=== PATIENT | male | born 1960 | race Caucasian/White ===

== ENCOUNTER 2019-08-05 06:55 | Emergency (ER) | payer MEDICARE ==
[~2019-08-05] VITALS: Ht 180.3 cm; Wt 127.5 kg
--- NOTE | 2019-08-05 07:09 | NUR ---
[facility]IBRA. TO ER BED 9. AAOX4. BREATHING EVEN AND UNLABORED. C/O CHEST PAIN 2 HOURS [employer]. PT REPORT PAIN PRESSURE ON MID CHEST, 8/10, RADIATES TO NECK. PT REPORTS TAKING ASPIRIN AND [place] [employer]. PT ALSO REPORT HAVING HEADACHE. NOTED ANXIOUS. MD AT BEDSIDE. ORDERS RECEIVED, NOTED AND CARRIED OUT. IV LINE OBTAINED ON L AC 18G. BLOOD DRAWN AND GIVEN TO [employer]. EKG DONE. PT PLACED ON MONITOR.
[2019-08-05 07:17] LABS: BASOPHILS # (AUTO) 0.1 /CMM (0.0-0.2); HEMATOCRIT 37 % (39-51); HEMOGLOBIN 12.6 g/dL (13.5-17.5); LYMPHOCYTES # (AUTO) 1.7 /CMM (0.8-4.8); LYMPHOCYTES % (AUTO) 30.2 % (20.0-44.0); MEAN CORPUSCULAR HGB CONC 34 g/dl (31.0-36.0); MEAN CORPUSCULAR VOLUME 90 fL (80-96); MONOCYTES # (AUTO) 0.6 /CMM (0.1-1.30); MONOCYTES % (AUTO) 10.6 % (2.0-12.0); NEUTROPHILS # (AUTO) 3.1 /CMM (1.8-8.9); NEUTROPHILS % (AUTO) 56.2 % (43.0-81.0); PLATELET COUNT (AUTO) 227 /CMM (150-450); RED BLOOD CELL COUNT(AUTO) 4.07 MIL/uL (4.5-6.0); WHITE BLOOD COUNT (AUTO) 5.5 K/uL (4.3-11.0)
[2019-08-05] MEDS ORDERED: METOPROLOL TARTRATE INJ 5 MG/5 ML AMPUL ONE (07:24)
[2019-08-05] MEDS ORDERED: LORAZEPAM INJ 2 MG/ML VIAL ONE (07:24)
[2019-08-05] MEDS ORDERED: IV NS 0.9% 500 ML BAG IV ONE (07:30)
[2019-08-05] MEDS ORDERED: LORAZEPAM INJ 2 MG/ML VIAL IV ONE (07:30)
[2019-08-05] MEDS ORDERED: METOPROLOL TARTRATE INJ 5 MG/5 ML AMPUL IV ONE (07:30)
--- NOTE | 2019-08-05 07:30 | NUR ---
RECEIVED REPORT FROM NADIA MAY, PT IS AAOX4, NOT IN RESPIRATORY DISTRESS, V/S STABLE, KEPT RESTED AND COMFORTABLE, AWAITING LAB RESULTS.
--- NOTE | 2019-08-05 07:32 | NUR ---
ORCHID WORKER AT BEDSIDE FOR XRAY.
--- NOTE | 2019-08-05 07:44 | NUR ---
PT ENDORSED TO DORON RN
[2019-08-05 07:50] LABS: CALCIUM, SERUM 8.8 mg/dL (8.5-10.1); CARBON DIOXIDE 27 mmol/L (21-32); CHLORIDE 97 mmol/L (98-107); GLUCOSE 90 mg/dL (74-106); POTASSIUM 3.6 mmol/L (3.5-5.1); SODIUM SERUM 137 mmol/L (136-145); UREA NITROGEN, BLOOD 13 mg/dL (7-18)
[2019-08-05 08:02] LABS: ALANINE AMINOTRANSFERASE 44 U/L (12-78); ALBUMIN 3.6 g/dL (3.4-5.0); ALKALINE PHOSPHATASE 71 U/L (46-116); ASPARTATE AMINOTRANSFERASE 37 U/L (15-37); B-TYPE NATRIURETIC PEPTIDE 64 PG/ML (0-125); BILIRUBIN,DIRECT 0.1 mg/dL (0.0-0.2); BILIRUBIN,TOTAL 0.3 mg/dL (0.2-1.0); TOTAL PROTEIN, SERUM 7.4 g/dL (6.4-8.2)
[2019-08-05] MEDS ORDERED: ASPI-992 PO (08:46)
[2019-08-05] MEDS ORDERED: LOSA1TAB39 PO (08:46)
[2019-08-05] MEDS ORDERED: BUPR300T54 PO (08:46)
[2019-08-05] MEDS ORDERED: ROSU40TA23 PO (08:46)
--- NOTE | 2019-08-05 08:46 | NUR ---
CALLED HOUSE SUP FOR TELE-BED. WILL CALL BACK.
--- NOTE | 2019-08-05 10:42 | NUR ---
GOT BED 314-1
--- NOTE | 2019-08-05 11:09 | NUR ---
REPORT GIVEN TO NADIA ALMONTE FOR NESS.
--- NOTE | 2019-08-05 11:30 | NUR ---
Patient does not wish to proceed with medical care recommended by Dr. MENDEZ. Patient given information related to possible complications, up to and including , which could occur as a result of leaving the hospital at this time. Patient verbalizes understanding of risks involved due to leaving against medical advice. Patient has signed AMA form.
[2019-08-05 11:31] VITALS: BP 142/81
--- NOTE | 2019-08-05 11:31 | NUR ---
IV removed. Catheter intact and site benign. Pressure and 4x4 applied to site. No bleeding noted.
[2019-08-05] MEDS ORDERED: Z GUARD REMEDY 2 OZ OINT TP PRN (13:30)
[2019-08-05] MEDS ORDERED: ONDANSETRON HCL/PF 4 MG/2 ML VIAL IVP PRN (13:30)
[2019-08-05] MEDS ORDERED: ACETAMINOPHEN 325 MG TABLET PO PRN (13:30)
[2019-08-05] MEDS ORDERED: ENOXAPARIN SODIUM 40 MG/0.4 ML DISP.SYRIN SQ SCH (13:30)
[2019-08-05] MEDS ORDERED: MORPHINE SULFATE INJ 2 MG/ML DISP.SYRIN IV PRN (13:30)
[2019-08-05] MEDS ORDERED: ZOLPIDEM TARTRATE 5 MG TABLET PO PRN (13:30)
[2019-08-05] MEDS ORDERED: ATORVASTATIN 40 MG TABLET PO SCH (22:00)
[2019-08-06] MEDS ORDERED: LOSARTAN/HCTZ 50-12.5MG/ 1 EA TABLET PO SCH (09:00)
[2019-08-06] MEDS ORDERED: BUPROPION XL 150 MG TAB.ER.24 PO SCH (09:00)
[2019-08-06] MEDS ORDERED: ASPIRIN 325 MG TABLET PO SCH (09:00)
== END 2019-08-05 11:32 | disposition left against medical advice (07) ==
LOC: ER 06:57 → UNDOADMIN 10:50 → TELE 10:50
DX: R07.89 Other chest pain (principal); I10 Essential (primary) hypertension; Z95.5 Presence of coronary angioplasty implant and graft; Z79.82 Long term (current) use of aspirin
CPT/HCPCS: 36415; 71045; 80048; 80076; 83880; 84484; 85025; 85730; 87081; 93005 ×2; 96374; 96375; 99284; J2060; J3490; J7040